=== PATIENT | male | born 1980 | race Hispanic/Latino ===

== ENCOUNTER 2018-01-01 19:52 | Emergency (ER) | payer BC ==
[2018-01-01 20:00] VITALS: TEMP 98.2
[2018-01-01] MEDS ORDERED: cefTRIAXone (Rocephin) 1 gm Inj IM STA (20:15)
[2018-01-01] MEDS ORDERED: Oxycodone/Acetaminophen 5/325 mg Tab PO STA (20:16)
--- NOTE | 2018-01-01 20:20 | ED PDOC ---
Arrival/HPI - General Chief Complaint: Dental Pain Time Seen by Provider: 01/01/18 20:15 Historian: Patient - History of Present Illness Narrative History of Present Illness (Text): 01/01/18 20:17 37yo male with no pmhx who present with complaint of right sided lower gum/tooth pain. States he had a partial dental extraction on . Started having worsening pain yesterday. States he is on Minocycline, medro pack, and Ibupr ofen, but no pain relieve. States his appointment is on Tuesday and he couldn't take the pain. Denies fever,chills, headache , nausea, vomiting, any other complaint. Past Medical History - Provider Review Nursing Documentation Reviewed: Yes - Psychiatric Hx Substance Use: No Family/Social History - Physician Review Nursing Documentation Reviewed: Yes Family/Social History: Unknown Family HX Smoking Status: Never Smoked Hx Alcohol Use: Yes Frequency of alcohol use: Socially Hx Substance Use: No Allergies/Home Meds Allergies/Adverse Reactions: Allergies No Known Allergies Allergy (Verified 01/01/18 19:53) Home Medications: Home Meds Medication Instructions Recorded Confirmed Methylprednisolone [Medrol Dose 1 tab PO Q4 01/01/18 01/01/18 Pack (21 tabs)] Minocycline HCl [Minocin] 100 mg PO Q12 01/01/18 01/01/18 Review of Systems - Physician Review All systems were reviewed & negative as marked: Yes - Review of Systems Constitutional: Normal Eyes: Normal ENT: Other (Dental pain) Respiratory: Normal Cardiovascular: Normal Gastrointestinal: Normal Genitourinary Male: Normal Musculoskeletal: Normal Skin: Normal Neurological: Normal Endocrine: Normal Hemo/Lymphatic: Normal Psychiatric: Normal Physical Exam Vital Signs Reviewed: Yes Vital Signs Temp Pulse Resp BP Pulse Ox 01/01/18 19:57 98.2 F 90 16 147/93 H 98 Temperature: Afebrile Blood Pressure: Normal Pulse: Regular Respiratory Rate: Normal Appearance: Positive for: Well-Appearing, Non-Toxic, Comfortable Pain Distress: None Mental Status: Positive for: Alert and Oriented X 3 - Systems Exam Head: Present: Atraumatic, Normocephalic Pupils: Present: PERRL Extroacular Muscles: Present: EOMI Conjunctiva: Present: Normal Mouth: Present: Moist Mucous Membranes, Other (Erythematous right gum with white patch on right sided lower gum surrounding the 1st molar) Neck: Present: Normal Range of Motion Respiratory/Chest: Present: Clear to Auscultation, Good Air Exchange. No: Respiratory Distress, Accessory Muscle Use Cardiovascular: Present: Regular Rate and Rhythm, Normal S1, S2. No: Murmurs Abdomen: No: Tenderness, Distention, Peritoneal Signs Back: Present: Normal Inspection Upper Extremity: Present: Normal Inspection. No: Cyanosis, Edema Lower Extremity: Present: Normal Inspection. No: Edema Neurological: Present: GCS=15, CN II-XII Intact, Speech Normal Skin: Present: Warm, Dry, Normal Color. No: Rashes Psychiatric: Present: Alert, Oriented x 3, Normal Insight, Normal Concentration Disposition/Present on Arrival - Present on Arrival Any Indicators Present on Arrival: No History of DVT/PE: No History of Uncontrolled Diabetes: No Urinary Catheter: No History of Decub. Ulcer: No History Surgical Site Infection Following: None - Disposition Have Diagnosis and Disposition been Completed?: Yes Diagnosis: Dental abscess Disposition: HOME/ ROUTINE Disposition Time: 20:25 Patient Plan: Discharge Condition: STABLE Discharge Instructions (ExitCare): Dental Pain (DC) Additional Instructions: Follow up with your Dentist tomorrow Return to ED for any new or worsening symptoms Prescriptions: Clindamycin [Cleocin] 300 mg PO TID #21 cap oxyCODONE/Acetaminophen [Percocet 5/325 mg Tab] 1 ea PO Q6 #8 tab Referrals: Jenny Jiménez MD [Medical Doctor] - Follow up with primary
[2018-01-01 21:06] VITALS: BP 138/78; PULSE 85; RESP 18; O2SAT 100
== END 2018-01-01 20:45 | disposition home or self-care (01) ==
LOC: ED 19:52 → MERGE 19:52 → ED 20:45
DX: K04.7 Periapical abscess without sinus (principal)
CPT/HCPCS: 96372; 99282; J0696